=== PATIENT | female | born 1945 | race Caucasian/White ===

== ENCOUNTER 2016-10-21 08:49 | Emergency (ER) | payer MEDICARE, BC, OTHER ==
[~2016-10-21] VITALS: Ht 154.9 cm; Wt 88.0 kg
[~2016-10-21 08:49] MED LIST: ADLT ASA LOW81 MG PO; ALBUTEROL SUL0.083 % IN; ANTIVERT PO; ASPIRIN LOW DOS81 MG PO; ASPIRIN81 MG PO; ATORVASTATIN CA40 MG PO; AZITHROMYCIN250 MG PO; BACTRIM DS1 TAB PO; DONEPEZIL10 MG PO; DONEPEZIL5 MG PO; FLEXERIL PO; FREESTYLE LITE TEST SC; GABAPENTIN100 MG PO; GABAPENTIN400 MG PO; GEODON80 MG; GEODON80 MG PO; LAMICTAL100 M1 PO; LEVOTHYROXIN150 MC1 PO; LEVOTHYROXIN150 MCG PO; LITHIUM CARB300 MG PO; LYRICA50 MG PO; LYRICA75 MG PO; MACROBID100 MG PO; MECLIZINE25 MG PO; METFORMIN500 MG PO; NAPROSYN500 MG PO; NEURONTIN100 MG PO; NEURONTIN300 MG PO; NORCO1 TA1 PO; ONDANSETRON4 MG PO; PANTOPRAZOLE SO40 MG PO; PREDNISONE10 MG PO; RISPERDAL1 M1 PO; ROBITUSSIN AC10 ML PO; ROPINIROLE HCL0.5 MG PO; ROPINIROLE0.5 MG PO; THEO-24100 MG PO; THEOPHYLLINE E100 MG; THEOPHYLLINE E100 MG PO; ULTRAM50 M1 PO; ULTRAM50 MG PO; VENTOLIN HFA IN; ZIPRASIDONE HCL80 MG PO; ZOFRAN ODT4 MG PO; [UNRECOGNIZED DRUG - OTHER] PO
[2016-10-21 09:27] LABS: HEMATOCRIT 39.3 % (37.0-47.0); HEMOGLOBIN 13.3 g/dl (12.0-16.0); IMMATURE GRANULOCYTES 1.2 % (0.0-1.0); MEAN CELL VOLUME 84.3 fL CALC (80.0-100.0); MEAN CORPUSCULAR HGB 28.5 pG CALC (26.0-32.0); MEAN CORPUSCULAR HGB CONC 33.8 g/L CALC (32.0-36.0); NEUT# 11.51 thou/uL (2.00-7.15); RED BLOOD COUNT 4.66 mill/uL (4.20-5.60)
[2016-10-21] MEDS ORDERED: OMEPRAZOLE20 MG PO (09:37)
[2016-10-21] MEDS ORDERED: THERAGRAN-M PO (09:38)
[2016-10-21 09:39] LABS: ALKALINE PHOSPHATASE 96 u/l (38-126); AMYLASE 43 u/l (30-110); ANION GAP 14 (6-22 (CALC)); BILIRUBIN, TOTAL 0.4 mg/dL (0.0-1.4); BUN 6 mg/dL (8-23); BUN/CREATININE RATIO 13 (12-20 (CALC)); CALCIUM 9.2 mg/dL (8.4-10.2); CARBON DIOXIDE 25 mmol/l (22-30); CHLORIDE 103 mmol/l (95-108); CREATININE 0.5 mg/dL (0.5-1.0); GFR > 60 ML/MIN (>=60 (CALC)); GFR FOR AFR.AMER. > 60 ML/MIN (>=60 (CALC)); GLUCOSE 136 mg/dL (82-115); LIPASE 56 u/l (23-300); POTASSIUM 3.7 mmol/l (3.5-5.1); SGOT/AST 18 u/l (9-36); SGPT/ALT 28 u/l (11-66); SODIUM 139 mmol/l (137-146); TOTAL PROTEIN 6.8 g/dL (6.3-8.2)
[2016-10-21 09:51] LABS: MYOGLOBIN 16 ng/mL (0 - 62)
[2016-10-21 09:52] LABS: INTERNATIONAL NORMALIZED RATIO 0.9 RATIO (0.7-1.3)
[2016-10-21] MEDS ORDERED: ZITHROMAX250 MG PO (11:34)
[2016-10-21 11:41] VITALS: BP 142/59
== END 2016-10-21 11:48 | disposition home or self-care (01) ==
LOC: ED 08:49
PROVIDERS: Emergency Medicine
DX: J40 Bronchitis, not specified as acute or chronic (principal); R07.89 Other chest pain; R94.31 Abnormal electrocardiogram [ECG] [EKG]; Z95.0 Presence of cardiac pacemaker; F17.210 Nicotine dependence, cigarettes, uncomplicated; I10 Essential (primary) hypertension; R05 Cough

== ENCOUNTER 2017-04-04 14:23 | Emergency (ER) | payer MEDICARE, BC, OTHER ==
[~2017-04-04] VITALS: Ht 152.4 cm; Wt 80.0 kg
[~2017-04-04 14:23] MED LIST changes: +CIPROFLOXACN500 MG PO; +COZAAR25 MG PO; +METRONIDAZOL500 MG PO; +OMEPRAZOLE20 MG PO; +THERAGRAN-M PO; +ZITHROMAX250 MG PO
[2017-04-04 15:05] VITALS: BP 121/67
== END 2017-04-04 15:05 | disposition home or self-care (01) ==
LOC: ED 14:23
DX: M25.472 Effusion, left ankle (principal); F31.9 Bipolar disorder, unspecified; F20.9 Schizophrenia, unspecified; E11.9 Type 2 diabetes mellitus without complications; I10 Essential (primary) hypertension; G30.9 Alzheimer's disease, unspecified; F02.80 Dementia in other diseases classified elsewhere, unspecified severity, without behavioral disturbance, psychotic disturbance, mood disturbance, and anxiety; M79.7 Fibromyalgia; J44.9 Chronic obstructive pulmonary disease, unspecified; Z95.0 Presence of cardiac pacemaker

== ENCOUNTER 2017-05-21 16:23 | Emergency (ER) | payer MEDICARE, BC, OTHER ==
[~2017-05-21] VITALS: Ht 152.4 cm; Wt 80.0 kg
[2017-05-21 17:13] LABS: HEMATOCRIT 46.8 % (37.0-47.0); HEMOGLOBIN 15.4 g/dl (12.0-16.0); MEAN CORPUSCULAR HGB 27.3 pG CALC (26.0-32.0); MEAN CORPUSCULAR HGB CONC 32.9 g/L CALC (32.0-36.0); NEUT# 12.41 thou/uL (2.00-7.15); RED BLOOD COUNT 5.64 mill/uL (4.20-5.60); RED CELL DISTRI WIDTH 15.4 % (11.5-15.5)
[2017-05-21 17:29] LABS: ALBUMIN 4.6 g/dL (3.2-5.0); ALKALINE PHOSPHATASE 102 u/l (38-126); ANION GAP 17 (6-22 (CALC)); BILIRUBIN, TOTAL 0.4 mg/dL (0.0-1.4); BUN 7 mg/dL (8-23); BUN/CREATININE RATIO 16 (12-20 (CALC)); CALCIUM 9.5 mg/dL (8.4-10.2); CARBON DIOXIDE 24 mmol/l (22-30); CHLORIDE 104 mmol/l (95-108); CREATININE 0.4 mg/dL (0.5-1.0); GFR > 60 ML/MIN (>=60 (CALC)); GFR FOR AFR.AMER. > 60 ML/MIN (>=60 (CALC)); GLUCOSE 78 mg/dL (82-115); LIPASE 153 u/l (23-300); POTASSIUM 4.1 mmol/l (3.5-5.1); SGOT/AST 21 u/l (9-36); SGPT/ALT 29 u/l (11-66); SODIUM 141 mmol/l (137-146); TOTAL PROTEIN 6.8 g/dL (6.3-8.2)
[2017-05-21 18:02] LABS: URINE BILIRUBIN - DIPSTICK NEGATIVE (NEGATIVE); URINE BLOOD DIPSTICK NEGATIVE (NEGATIVE); URINE CLARITY CLEAR; URINE COLOR YELLOW; URINE GLUCOSE - DIPSTICK NEGATIVE (NEGATIVE); URINE KETONE NEGATIVE (NEGATIVE); URINE LEUK ESTERASE TRACE (NEGATIVE); URINE NITRITE - DIPSTICK NEGATIVE (Negative); URINE PROTEIN - DIPSTICK NEGATIVE (NEG-TRACE); URINE SPECIFIC GRAVITY 1.025; URINE UROBILINOGEN - DIPSTICK 0.2 E.U./dL (0.2)
[2017-05-21 18:31] VITALS: BP 196/92
== END 2017-05-21 18:39 | disposition home or self-care (01) ==
LOC: ED 16:23
PROVIDERS: Emergency Medicine
DX: R10.13 Epigastric pain (principal); F31.9 Bipolar disorder, unspecified; F20.9 Schizophrenia, unspecified; G30.9 Alzheimer's disease, unspecified; F02.80 Dementia in other diseases classified elsewhere, unspecified severity, without behavioral disturbance, psychotic disturbance, mood disturbance, and anxiety; Z95.0 Presence of cardiac pacemaker; Z72.0 Tobacco use; R45.1 Restlessness and agitation

== ENCOUNTER 2017-06-02 14:53 | Inpatient (IN) | payer MEDICARE, BC, OTHER ==
[2017-06-02 15:17] LABS: HEMATOCRIT 45.8 % (37.0-47.0); HEMOGLOBIN 15.2 g/dl (12.0-16.0); IMMATURE GRANULOCYTES 1.3 % (0.0-1.0); MEAN CORPUSCULAR HGB 27.9 pG CALC (26.0-32.0); MEAN CORPUSCULAR HGB CONC 33.2 g/L CALC (32.0-36.0); NEUT# 12.4 thou/uL (2.00-7.15); RED BLOOD COUNT 5.45 mill/uL (4.20-5.60); RED CELL DISTRI WIDTH 15.9 % (11.5-15.5)
[2017-06-02 15:48] LABS: ALBUMIN 4.1 g/dL (3.2-5.0); ALKALINE PHOSPHATASE 93 u/l (38-126); ANION GAP 16 (6-22 (CALC)); BILIRUBIN, TOTAL 0.7 mg/dL (0.0-1.4); BUN 10 mg/dL (8-23); BUN/CREATININE RATIO 21 (12-20 (CALC)); CALCIUM 9.2 mg/dL (8.4-10.2); CARBON DIOXIDE 24 mmol/l (22-30); CHLORIDE 104 mmol/l (95-108); CREATININE 0.5 mg/dL (0.5-1.0); ETHYL ALCOHOL 0 mg/dl (0-30); GFR > 60 ML/MIN (>=60 (CALC)); GFR FOR AFR.AMER. > 60 ML/MIN (>=60 (CALC)); GLUCOSE 142 mg/dL (82-115); POTASSIUM 3.8 mmol/l (3.5-5.1); SGOT/AST 26 u/l (9-36); SGPT/ALT 25 u/l (11-66); SODIUM 141 mmol/l (137-146); TOTAL PROTEIN 6.3 g/dL (6.3-8.2)
[2017-06-02 15:59] LABS: MYOGLOBIN 47 ng/mL (0 - 62)
[2017-06-02 18:45] LABS: URINE BLOOD DIPSTICK NEGATIVE (NEGATIVE); URINE COLOR YELLOW; URINE GLUCOSE - DIPSTICK NEGATIVE (NEGATIVE); URINE LEUK ESTERASE NEGATIVE (NEGATIVE); URINE NITRITE - DIPSTICK NEGATIVE (Negative); URINE PROTEIN - DIPSTICK NEGATIVE (NEG-TRACE); URINE SPECIFIC GRAVITY 1.025; URINE UROBILINOGEN - DIPSTICK 0.2 E.U./dL (0.2)
[2017-06-02 18:49] LABS: BARBITURATES NEGATIVE (NEGATIVE); COCAINE NEGATIVE (NEGATIVE); METHADONE NEGATIVE (NEGATIVE); OXCYCODONE NEGATIVE (NEGATIVE); TETRAHYDROCANNABIONOL NEGATIVE (NEGATIVE); TRICYLIC ANTIDEPRESSANTS NEGATIVE (NEGATIVE); URINE BILIRUBIN - DIPSTICK SMALL (NEGATIVE); URINE CLARITY CLEAR
[2017-06-02 18:50] LABS: URINE KETONE Negative (NEGATIVE)
[2017-06-02 19:00] VITALS: BP 151/53
[2017-06-02 20:00] VITALS: BP 112/58
[2017-06-03] VITALS: BP 183/88
[2017-06-03 04:00] VITALS: BP 183/81
[2017-06-03 04:48] LABS: HEMATOCRIT 51.2 % (37.0-47.0); MEAN CELL VOLUME 83.9 fL CALC (80.0-100.0); MEAN CORPUSCULAR HGB 27.9 pG CALC (26.0-32.0); MEAN CORPUSCULAR HGB CONC 33.2 g/L CALC (32.0-36.0); RED BLOOD COUNT 6.1 mill/uL (4.20-5.60); RED CELL DISTRI WIDTH 15.9 % (11.5-15.5)
[2017-06-03 05:04] LABS: ANION GAP 15 (6-22 (CALC)); BUN 9 mg/dL (8-23); BUN/CREATININE RATIO 19 (12-20 (CALC)); CALCIUM 9.1 mg/dL (8.4-10.2); CALCULATED LDLCHOLESTEROL 164 mg/dL (62-129 (CALC)); CARBON DIOXIDE 23 mmol/l (22-30); CHLORIDE 107 mmol/l (95-108); CHOLESTEROL HDL RATIO 4.2 (<4.4 (CALC)); CREATININE 0.5 mg/dL (0.5-1.0); GFR > 60 ML/MIN (>=60 (CALC)); GFR FOR AFR.AMER. > 60 ML/MIN (>=60 (CALC)); GLUCOSE 146 mg/dL (82-115); HDL CHOLESTEROL 59 mg/dL (>=40); POTASSIUM 4.6 mmol/l (3.5-5.1); SODIUM 141 mmol/l (137-146); TOTAL CHOLESTEROL 244 mg/dl (0-199); TOTAL TRIGLYCERIDES 107 mg/dl (30-149); VLDL CHOLESTROL 21 mg/dl (0-48 (CALC))
[2017-06-03] MEDS ORDERED: ANTIVERT PO (13:07)
[2017-06-03] MEDS ORDERED: CALCIUM & MAGNE1 TAB PO (13:07)
[2017-06-03] MEDS ORDERED: ARICEPT10 MG PO (13:07)
[2017-06-03] MEDS ORDERED: SYSTANE ULTRA OU (13:09)
[2017-06-03] MEDS ORDERED: ZIPRASIDONE HCL80 MG PO (15:31)
[2017-06-03] MEDS ORDERED: THEOPHYLLINE E100 MG PO (15:34)
[2017-06-03] MEDS ORDERED: CARAFATE1 GM PO (15:35)
[2017-06-03] MEDS ORDERED: VESICARE5 M1 PO (15:36)
[2017-06-03] MEDS ORDERED: LASIX 40 MG TAB40 MG PO (15:36)
[2017-06-03] MEDS ORDERED: PROTONIX40 M2 PO (15:36)
[2017-06-03] MEDS ORDERED: PROVENTIL0.083 % IN (15:37)
[2017-06-03 19:58] VITALS: BP 140/55
[2017-06-03 23:53] VITALS: BP 162/56
[2017-06-04 04:36] VITALS: BP 131/67
[2017-06-04 07:49] LABS: HEMATOCRIT 46.2 % (37.0-47.0); HEMOGLOBIN 15.1 g/dl (12.0-16.0); IMMATURE GRANULOCYTES 2.1 % (0.0-1.0); MEAN CELL VOLUME 84.6 fL CALC (80.0-100.0); MEAN CORPUSCULAR HGB 27.7 pG CALC (26.0-32.0); MEAN CORPUSCULAR HGB CONC 32.7 g/L CALC (32.0-36.0); NEUT# 10.57 thou/uL (2.00-7.15); RED BLOOD COUNT 5.46 mill/uL (4.20-5.60)
[2017-06-04 07:59] LABS: ANION GAP 12 (6-22 (CALC)); BUN 8 mg/dL (8-23); BUN/CREATININE RATIO 15 (12-20 (CALC)); CALCIUM 8.7 mg/dL (8.4-10.2); CARBON DIOXIDE 26 mmol/l (22-30); CHLORIDE 109 mmol/l (95-108); CREATININE 0.5 mg/dL (0.5-1.0); GFR > 60 ML/MIN (>=60 (CALC)); GFR FOR AFR.AMER. > 60 ML/MIN (>=60 (CALC)); GLUCOSE 92 mg/dL (82-115); SODIUM 143 mmol/l (137-146)
[2017-06-04 08:00] VITALS: BP 182/87
[2017-06-04 09:06] LABS: C. DIFFICILE TOXIN A&B NEGATIVE (NEGATIVE)
[2017-06-04 12:00] VITALS: BP 168/70
[2017-06-04 16:00] VITALS: BP 164/64
[2017-06-04 20:00] VITALS: BP 150/60
[2017-06-05] VITALS (8 sets, daily range): BP systolic 119–194; BP diastolic 51–74
[2017-06-05 05:19] LABS: HEMATOCRIT 44.6 % (37.0-47.0); HEMOGLOBIN 14.5 g/dl (12.0-16.0); MEAN CELL VOLUME 84.6 fL CALC (80.0-100.0); MEAN CORPUSCULAR HGB 27.5 pG CALC (26.0-32.0); MEAN CORPUSCULAR HGB CONC 32.5 g/L CALC (32.0-36.0); RED BLOOD COUNT 5.27 mill/uL (4.20-5.60); RED CELL DISTRI WIDTH 16.1 % (11.5-15.5)
[2017-06-05 05:31] LABS: ANION GAP 11 (6-22 (CALC)); BUN 5 mg/dL (8-23); BUN/CREATININE RATIO 10 (12-20 (CALC)); CALCIUM 8.6 mg/dL (8.4-10.2); CARBON DIOXIDE 27 mmol/l (22-30); CHLORIDE 111 mmol/l (95-108); CREATININE 0.5 mg/dL (0.5-1.0); GFR > 60 ML/MIN (>=60 (CALC)); GFR FOR AFR.AMER. > 60 ML/MIN (>=60 (CALC)); GLUCOSE 79 mg/dL (82-115); POTASSIUM 3.5 mmol/l (3.5-5.1); SODIUM 145 mmol/l (137-146)
[2017-06-06 00:10] VITALS: BP 130/47
[2017-06-06 04:28] VITALS: BP 143/72
[2017-06-06 05:03] LABS: HEMATOCRIT 43.5 % (37.0-47.0); HEMOGLOBIN 14.4 g/dl (12.0-16.0); MEAN CELL VOLUME 83.2 fL CALC (80.0-100.0); MEAN CORPUSCULAR HGB 27.5 pG CALC (26.0-32.0); MEAN CORPUSCULAR HGB CONC 33.1 g/L CALC (32.0-36.0); RED BLOOD COUNT 5.23 mill/uL (4.20-5.60); RED CELL DISTRI WIDTH 16.1 % (11.5-15.5)
[2017-06-06 05:22] LABS: ANION GAP 13 (6-22 (CALC)); BUN 5 mg/dL (8-23); BUN/CREATININE RATIO 10 (12-20 (CALC)); CALCIUM 9.5 mg/dL (8.4-10.2); CARBON DIOXIDE 29 mmol/l (22-30); CHLORIDE 103 mmol/l (95-108); CREATININE 0.5 mg/dL (0.5-1.0); GFR > 60 ML/MIN (>=60 (CALC)); GFR FOR AFR.AMER. > 60 ML/MIN (>=60 (CALC)); GLUCOSE 96 mg/dL (82-115); MAGNESIUM 1.7 mg/dL (1.6-2.3); POTASSIUM 3.5 mmol/l (3.5-5.1); SODIUM 142 mmol/l (137-146)
[2017-06-06] MEDS ORDERED: LISINOP/HCTZ1 TA2 PO (14:51)
== END 2017-06-06 16:40 | DRG 885 ==
LOC: ED 14:53 → ED-I 17:00 → ED 17:34 → ICU 17:35
PROVIDERS: Emergency Medicine; Internal Medicine; ADMIT Internal Medicine; ATTEND Internal Medicine
DX: F20.0 Paranoid schizophrenia (principal); E11.9 Type 2 diabetes mellitus without complications; G30.9 Alzheimer's disease, unspecified; F02.80 Dementia in other diseases classified elsewhere, unspecified severity, without behavioral disturbance, psychotic disturbance, mood disturbance, and anxiety; E86.0 Dehydration; E78.5 Hyperlipidemia, unspecified; E03.9 Hypothyroidism, unspecified; D72.829 Elevated white blood cell count, unspecified; F31.9 Bipolar disorder, unspecified; I10 Essential (primary) hypertension; H35.30 Unspecified macular degeneration; M79.7 Fibromyalgia; J44.9 Chronic obstructive pulmonary disease, unspecified; F17.210 Nicotine dependence, cigarettes, uncomplicated; Z91.14 Patient's other noncompliance with medication regimen; Z95.0 Presence of cardiac pacemaker; Z86.73 Personal history of transient ischemic attack (TIA), and cerebral infarction without residual deficits
CPT/HCPCS: J2060